=== PATIENT | female | born 1975 | race Hispanic/Latino ===

== ENCOUNTER 2016-12-14 15:12 | Outpatient (CLI) | payer OTHER ==
[2016-12-14 16:23] LABS: #Basophils 0.1 thou/uL (0.0-0.2); #Eosinphils 0.2 thou/uL (0.0-0.7); #Lymphocytes 3.2 thou/uL (1.20-3.40); #Monocytes 0.8 thou/uL (0.11-0.59); #Neutrophils 5.1 thou/uL (1.40-6.50); %Basophils 0.8 % (0.0-1.0); %Eosinophils 2.3 % (0.0-10.0); %Lymphocytes 33.9 % (21.0-51.0); %Monocytes 8.6 % (0.0-10.0); Hematocrit 36.9 % (36.0-47.0); Mean Platelet Volume 6.6 fL (7.4-10.4); Red Blood Cell (RBC) Count 3.75 mill/uL (4.20-5.40); White Blood Cell (WBC) Count 9.4 thou/uL (4.8-10.8)
[2016-12-14 16:47] LABS: Anion Gap 8 mmol/L (10-20); BUN (Urea Nitrogen) 15 mg/dL (7.0-18.7); Calc. Creatinine Clearance 0 mL/min (70-130); Calcium 9.2 mg/dL (7.8-10.44); Carbon Dioxide 28 mmol/L (22-29); Chloride 107 mmol/L (98-107); Estimated GFR-MDRD 86
== END 2016-12-14 15:13 | disposition home or self-care (01) ==
LOC: LABBT 15:12
PROVIDERS: ATTEND Surgery
DX: Z01.812 Encounter for preprocedural laboratory examination (principal); K40.90 Unilateral inguinal hernia, without obstruction or gangrene, not specified as recurrent
CPT/HCPCS: 80048; 84703; 85025

== ENCOUNTER 2016-12-25 11:27 | Day surgery (SDC) | payer OTHER ==
[2016-12-14 15:35] VITALS: BMI 28.6
[2016-12-25] MEDS ORDERED: CEFAZOLIN/Water 2 GM/20 ML SYRINGE ONE (12:49)
[2016-12-25] MEDS ORDERED: Bupivacaine/Epinephrine 0.25% 30 ML VIAL ONE (14:20)
[2016-12-25] MEDS ORDERED: Midazolam HCl 2 mg/2 ml Vial ONE (14:20)
[2016-12-25] MEDS ORDERED: Fentanyl 250 MCG/5 ML VIAL ONE (14:26)
[2016-12-25] MEDS ORDERED: Glycopyrrolate 0.2 MG/ML 5 ML SYRINGE ONE (14:45)
[2016-12-25] MEDS ORDERED: Lidocaine 2% PF 10 ML AMP (For Epidural Use) ONE (14:45)
[2016-12-25] MEDS ORDERED: Propofol 200 MG/20 ML VIAL ONE (14:45)
[2016-12-25] MEDS ORDERED: Dexamethasone 20 MG/5 ML VIAL ONE (14:45)
[2016-12-25] MEDS ORDERED: Ketorolac Tromethamine 30 MG/ML VIAL ONE (14:45)
[2016-12-25] MEDS ORDERED: Ondansetron HCl/PF 4 MG/2 ML Vial ONE (14:45)
[2016-12-25] MEDS ORDERED: Fentanyl 100 MCG/2 ML VIAL ONE (16:12)
[2016-12-25] MEDS ORDERED: Morphine 4 MG/ML VIAL ONE (16:21)
[2016-12-25] MEDS ORDERED: Ondansetron ODT 4 MG TAB ONE (17:43)
--- NOTE | 2016-12-26 00:18 | OP ---
DATE OF PROCEDURE: 12/25/2016 PREOPERATIVE DIAGNOSIS: Left inguinal hernia. POSTOPERATIVE DIAGNOSIS: Left inguinal hernia. PROCEDURE: Da Irene laparoscopic left inguinal hernia repair with mesh, Bard 3DMax medium. SURGEON: Leroy Correa M.D. ANESTHESIA: General. ESTIMATED BLOOD LOSS: Minimal. COMPLICATIONS: None. SPECIMEN: None. FINDINGS: Left indirect inguinal hernia. TECHNIQUE: The patient was taken to the operating room and placed supine on the table. After genera l anesthetic was obtained, the Gillis was placed. The abdomen was prepped and draped in a sterile fas hion. Supraumbilical incision was made. Cautery was used to dissect down to the fascia. The fascia was incised and a Tiffanie clamp used to hold it up. The fascia was entered bluntly using a Tiffanie clam p. A 12-mm Ethicon trocar was placed. High-flow pneumoperitoneum was obtained. Left and right abdo mushtaq 8 mm robot trocars were placed. The patient was placed in Trendelenburg position. The periton eum was taken down in the left groin. Dissection was performed in the preperitoneal space down into the left inguinal region. The pubic tubercle was exposed medially and anterior iliac crest exposed l aterally and iliopectineal line is exposed and dissected. The indirect sac was dissected out of the indirect defect high up onto the fascia. The round ligament is cauterized and cut. There was no dir ect defect, 3DMax medium mesh was brought into the sterile field and placed in the abdominal cavity t hrough the 12 mm trocar site. medial aspect was placed over the pubic tubercle. The mesh was laid out lateral to cover the indirect femoral and indirect areas, 2-0 Vicryl was used to affix it t o the pubic tubercle medially and to the posterior fascia laterally. There was no bleeding, no injur y to intraabdominal structures. A 3-0 Stratafix was used to reapproximate the peritoneum. All needl es were removed from the abdomen. All port sites were infiltrated using local anesthetic. All ports were removed under camera visualization and pneumoperitoneum was let down. PDS was used to close th e fascial defect above the umbilicus. All incisions were irrigated and closed using 4-0 Monocryl and Dermabond. The patient was en route to recovery in stable condition. All instrument counts, needle counts, and lap counts were correct.
== END 2016-12-25 17:57 | disposition home or self-care (01) ==
LOC: SDC 11:27
PROVIDERS: ATTEND Surgery
PROC: 0YU64JZ Supplement Left Inguinal Region with Synthetic Substitute, Percutaneous Endoscopic Approach (ICD-10-PCS; principal; 2016-12-25)
DX: K40.90 Unilateral inguinal hernia, without obstruction or gangrene, not specified as recurrent (principal); Z98.890 Other specified postprocedural states
CPT/HCPCS: 96374; C1781; J1100; J1885; J2001; J2250; J2270; J2405; J2704; J3010; Q0162

== ENCOUNTER 2022-10-22 10:14 | Outpatient (CLI) | payer OTHER | END 2022-10-22 10:15 | disposition home or self-care (01) | LOC: SCSRAD 10:14 | PROVIDERS: ATTEND Family Medicine | DX: M54.50 Low back pain, unspecified (principal); M47.816 Spondylosis without myelopathy or radiculopathy, lumbar region | CPT/HCPCS: 72100 ==